=== PATIENT | female | born 1995 | race Native Hawaiian/Other Pacific Islander ===

== ENCOUNTER 2016-04-29 23:59 | Emergency (ER) | payer BC ==
[~2016-04-29] VITALS: Ht 177.8 cm; Wt 99.8 kg
[2016-04-30 00:48] VITALS: BP 153/73; TEMP 98.6
== END 2016-04-30 00:48 | disposition home or self-care (01) ==
LOC: ED 23:59
DX: H60.91 Unspecified otitis externa, right ear (principal)
CPT/HCPCS: 99282

== ENCOUNTER 2016-05-13 23:53 | Emergency (ER) | payer BC ==
[~2016-05-13] VITALS: Ht 175.3 cm; Wt 99.8 kg
[2016-05-14 00:51] VITALS: BP 130/74; TEMP 98.3
== END 2016-05-14 01:00 | disposition home or self-care (01) ==
LOC: ED 23:53
DX: S50.11XA Contusion of right forearm, initial encounter (principal); W23.0XXA Caught, crushed, jammed, or pinched between moving objects, initial encounter; Y92.098 Other place in other non-institutional residence as the place of occurrence of the external cause
CPT/HCPCS: 99283

== ENCOUNTER 2017-07-15 20:24 | Emergency (ER) | payer BC ==
[~2017-07-15] VITALS: Ht 175.3 cm; Wt 113.4 kg
[2017-07-15 20:42] VITALS: TEMP 98.2
[2017-07-15 23:22] VITALS: BP 130/78
== END 2017-07-15 23:23 | disposition home or self-care (01) ==
LOC: ED 20:24
DX: M25.511 Pain in right shoulder (principal); M54.89 Other dorsalgia; M54.2 Cervicalgia; V49.60XA Unspecified car occupant injured in collision with unspecified motor vehicles in traffic accident, initial encounter
CPT/HCPCS: 81025; 99283

== ENCOUNTER 2018-01-09 13:39 | Emergency (ER) | payer BC ==
[~2018-01-09] VITALS: Ht 175.3 cm; Wt 104.3 kg
[2018-01-09 14:32] LABS: PLATELET COUNT 226 K/uL (152-353)
[2018-01-09 14:40] LABS: POTASSIUM 3.7 mmol/L (3.6-5.2)
[2018-01-09 15:05] VITALS: BP 131/83; TEMP 97.7
== END 2018-01-09 15:05 | disposition home or self-care (01) ==
LOC: ED 13:39
DX: H66.91 Otitis media, unspecified, right ear (principal); R74.8 Abnormal levels of other serum enzymes
CPT/HCPCS: 80053; 85027; 99282

== ENCOUNTER 2019-05-31 19:51 | Emergency (ER) | payer BC ==
[~2019-05-31] VITALS: Ht 175.3 cm; Wt 90.7 kg
[2019-05-31 22:10] VITALS: BP 126/82; TEMP 98
== END 2019-05-31 22:10 | disposition still patient (30) ==
LOC: ED 19:51
PROC: 2W3CX1Z Immobilization of Right Lower Arm using Splint (ICD-10-PCS; principal; 2019-05-31)
DX: S62.001A Unspecified fracture of navicular [scaphoid] bone of right wrist, initial encounter for closed fracture (principal); W19.XXXA Unspecified fall, initial encounter
CPT/HCPCS: 96372; 99283; J1885